=== PATIENT | male | born 1970 | race Caucasian/White ===

== ENCOUNTER 2016-07-20 05:34 | Day surgery (SDC) | payer OTHER ==
[~2016-07-20 05:34] MED LIST: ADVIL PO; ALEVE220 MG PO; BEN25 PO; BUM1 PO; COREG12 PO; COREG25 PO; COSAMIN DS1 TAB PO; COZAAR100 MG PO; FLEX PO; FLONASE NAS; FORTAMET500 MG PO; GLUCCHONDR PO; HALF81 PO; KLOR-CON M2020 MEQ PO; LEVOTHYROXIN75 MCG PO; LOP25 PO; MOBIC15 MG PO; MULTIPLE VIT PO; NORCO1 TA2 PO; NORV25 PO; NUCYNTA75 MG PO; PCET PO; POT GLUCONAT550 M1 PO; PROVHFA INH; SACU1TAB PO; SINGULAIR1 PO; SPIRO25 PO; T PO; VENTOLIN HFA INH; VITC500 PO; WELLXL300 PO; Z300 PO; ZANTAC 75 PO
== END 2016-07-20 08:30 | disposition home or self-care (01) ==
LOC: SDC 05:34
PROVIDERS: Orthopaedic Surgery
PROC: 3E0R33Z Introduction of Anti-inflammatory into Spinal Canal, Percutaneous Approach (ICD-10-PCS; 2016-07-20)
PROC: 3E0R3BZ Introduction of Anesthetic Agent into Spinal Canal, Percutaneous Approach (ICD-10-PCS; principal; 2016-07-20 07:00)
DX: M54.17 Radiculopathy, lumbosacral region (principal); J44.9 Chronic obstructive pulmonary disease, unspecified; J40 Bronchitis, not specified as acute or chronic; I10 Essential (primary) hypertension; E03.9 Hypothyroidism, unspecified; E11.9 Type 2 diabetes mellitus without complications; G47.30 Sleep apnea, unspecified; M10.9 Gout, unspecified; M19.90 Unspecified osteoarthritis, unspecified site; Z87.891 Personal history of nicotine dependence; Z88.5 Allergy status to narcotic agent; Z91.013 Allergy to seafood; Z91.011 Allergy to milk products; Z79.51 Long term (current) use of inhaled steroids; Z79.899 Other long term (current) drug therapy; Z86.73 Personal history of transient ischemic attack (TIA), and cerebral infarction without residual deficits; Z90.49 Acquired absence of other specified parts of digestive tract; Z98.890 Other specified postprocedural states
CPT/HCPCS: 82962; J1200; J2250; J3010; Q9967